=== PATIENT | male | born 1970 | race Caucasian/White ===

== ENCOUNTER 2017-08-18 14:57 | Inpatient (IN) | payer MEDICAID, OTHER ==
[~2017-08-18] VITALS: Ht 162.6 cm; Wt 102.2 kg
[2017-08-18] MEDS ORDERED: SOD CHLORIDE 0.9% 1,000 ML IV STA (15:54)
[2017-08-18] MEDS ORDERED: ONDANSETRON 4 MG INJ IV STA (15:54)
[2017-08-18] MEDS ORDERED: KETOROLAC 30 MG INJ IV STA (15:54)
[2017-08-18 16:25] LABS: BASOPHIL # 0.1 10^3/ul (0.0-0.1); BASOPHILS % 0.2 % (0.0-2.0); EOSINOPHILS % 0.1 % (0.0-7.0); HEMATOCRIT 43.7 % (42.0-52.0); HEMOGLOBIN 14.4 g/dl (14.0-18.0); LYMPHOCYTES # 1.2 10^3/ul (0.8-2.9); LYMPHOCYTES % 5.5 % (15.0-51.0); MEAN CORPUSCULAR HEMOGLOBIN 25.9 pg (29.0-33.0); MEAN CORPUSCULAR VOLUME 78.7 fl (82.0-101.0); MEAN PLATELET VOLUME 10.3 fl (7.4-10.4); MONOCYTE # 0.9 10^3/ul (0.3-0.9); MONOCYTES % 4.2 % (0.0-11.0); NEUTROPHIL # 19.2 10^3/ul (1.6-7.5); NEUTROPHILS % 89.5 % (39.0-77.0); PLATELET COUNT 321 10^3/UL (140-415); RED BLOOD COUNT 5.55 10^6/ul (4.70-6.10); RED CELL DISTRIBUTION WIDTH 13.5 % (11.5-14.5); WHITE BLOOD COUNT 21.4 10^3/ul (4.8-10.8)
[2017-08-18 16:38] LABS: ADD UMIC YES; UR ASCORBIC ACID NEGATIVE (NEGATIVE); UR BACTERIA FEW /HPF (NONE SEEN); UR BILIRUBIN (Dip) NEGATIVE (NEGATIVE); UR BLOOD (Dip) 3+ mg/dL (NEGATIVE); UR CLARITY CLEAR (CLEAR); UR COLOR YELLOW (YELLOW); UR GLUCOSE (Dip) NEGATIVE (NEGATIVE); UR KETONES (Dip) NEGATIVE (NEGATIVE); UR LEUKOCYTE ESTERASE (Dip) NEGATIVE Leu/ul (NEGATIVE); UR MUCUS FEW /HPF (NONE SEEN); UR NITRITE (Dip) NEGATIVE (NEGATIVE); UR RBC 23 /HPF (0-5); UR SPECIFIC GRAVITY (Dip) 1.023 (1.003-1.030); UR TOTAL PROTEIN (Dip) NEGATIVE (NEGATIVE); UR UROBILINOGEN (Dip) NEGATIVE (NEGATIVE)
[2017-08-18 16:43] LABS: ALBUMIN 4.3 g/dl (3.3-4.9); ALBUMIN/GLOBULIN RATIO 1.38; BILIRUBIN,INDIRECT 0.5 mg/dl (0-1.1); BILIRUBIN,TOTAL 0.5 mg/dl (0.2-1.3); CALCIUM 8.9 mg/dl (8.4-10.2); CREATININE 1.01 mg/dl (0.61-1.24); TOTAL PROTEIN 7.4 g/dl (6.1-8.1)
[2017-08-18] MEDS ORDERED: SODIUM CHLORIDE 0.9% 1L BAG IV* STA (17:00)
[2017-08-18] MEDS ORDERED: AMPICILLIN/SULB 3 GM/NS (PMX) 100 ML IVPB ONE (17:30)
--- NOTE | 2017-08-18 17:33 | RADRPT ---
PROCEDURE: CT Abdomen and Pelvis without contrast. CLINICAL INDICATION: Left lower quadrant pain. History of appendectomy at 15-years old. TECHNIQUE: CT scan of the abdomen and pelvis without contrast was performed without intravenous co ntrast. Coronal and sagittal reformatted images were obtained from the axial source images. Images were reviewed on a high-resolution PACS workstation. CTDI 20 mGy, DLP 1244 mGy-cm One or more of the following dose reduction techniques were used: Automated exposure control Adjustment of the mA and/or kV according to patient size. Use of iterative reconstruction technique. DICOM images are available. COMPARISON: None. FINDINGS: The lung bases are clear with minimal scarring within the left lower lobe. The heart size is normal . The aorta and its branches are normal in size and caliber. The kidneys are symmetric in size and density. There is slight medial rotation of the inferior poles of both kidneys, congenital. There is no perinephric fat stranding. There is no nephroureterolithia sis or hydronephrosis. The ureters are normal in course and caliber. Evaluation of solid organs is limited due to the lack of intravenous contrast. However, the liver, g allbladder, spleen, pancreas, and adrenal glands are unremarkable. The distal esophagus is unremarkable. Stomach is decompressed. The small bowel loops are normal in c aliber without evidence of small bowel obstruction. The appendix is not visualized in keeping with history of prior appendectomy. There are several diverticula in the lower descending and sigmoid col on with fat stranding surrounding the lower descending colon. The left colon is mostly decompressed. There is no pneumoperitoneum or an abscess. No significant free fluid is visualized. There is no mesenteric, retroperitoneal, or pelvic lymphadenopathy. The bladder is mildly distended, but grossly unremarkable. The prostate is mildly enlarged with a fe w calcifications. Seminal vesicles are unremarkable. There is no pelvic free fluid. Multilevel mild degenerative disc disease within the thoracolumbar spine are noted. There are no acu te fractures. There are also mild degenerative changes within both hips with osseous spurring and marisel int space narrowing. RPTAT: QQ IMPRESSION: 1. Diverticulitis with several diverticula within the lower descending and sigmoid colon with fat s tranding surrounding the lower descending colon. No intra-abdominal abscess or pneumoperitoneum. 2. Non-visualized appendix in keeping with prior appendectomy. Results were discussed with Dr. Macedo at 08/18/2017 5:29:48 PM. .Mabel Ellis MD, MD Date Time Electronically viewed and signed by .Mabel Ellis MD, MD on 08/18/2017 17:32 .T/
--- NOTE | 2017-08-18 18:25 | RADRPT ---
PROCEDURE: Portable chest x-ray. CLINICAL INDICATION: 47-year of age, male. Possible sepsis TECHNIQUE: Portable AP view of the chest. COMPARISON: None available. FINDINGS: Medical devices: None. Cardiomediastinal contours are normal. Lungs are clear. Negative for pleural effusion or pneumothorax. No acute bony abnormality. Additional comment: None. IMPRESSION: Negative for evidence of an acute chest process. RPTAT: HCTS Shelly Mckenzie Physician Date Time Electronically viewed and signed by Shelly Mckenzie Physician on 08/18/2017 18:24 CS/
[2017-08-18 18:35] LABS: INR 0.9; PARTIAL THROMBOPLASTIN TIME 28.1 Sec (25.0-35.0); PROTIME 12.2 Sec (11.9-14.9)
--- NOTE | 2017-08-18 18:48 | ERD ---
ER Documentation Chief Complaint Chief Complaint left lower abd pain x 2 days , denies n/v/d HPI Patient is a 47-year-old male with hypertension who presents with abdominal pain. He has left lower quadrant abdominal pain which started yesterday. It is sharp and constant. He had fevers as well. He tried "Panadol" for pain. He denies vomiting or diarrhea. He does not currently have a primary doctor. ROS All systems reviewed and are negative except as per history of present illness. Allergies Allergies: Coded Allergies: No Known Allergy (Unverified , 08/18/17) PMhx/Soc Medical and Surgical Hx: pt denies Medical Hx History of Surgery: Yes (appendectomy) Hx Alcohol Use: No Hx Substance Use: No Hx Tobacco Use: No Smoking Status: Never smoker FmHx Family History: No diabetes Physical Exam Vitals Vital Signs Date Time Temp Pulse Resp B/P Pulse Ox O2 Delivery O2 Flow Rate FiO2 08/18/17 15:00 100.1 110 18 149/92 98 Physical Exam Const: Moderate distress secondary to pain Head: Atraumatic Eyes: Normal Conjunctiva ENT: Normal External Ears, Nose and Mouth. Neck: Full range of motion..~ No meningismus. Resp: Clear to auscultation bilaterally Cardio: Regular rate and rhythm, no murmurs Abd: Soft, left lower quadrant tenderness to palpation without rebound or guarding Skin: No petechiae or rashes Back: No midline or flank tenderness Ext: No cyanosis, or edema Neur: Awake and alert Psych: Normal Mood and Affect Result Diagram: 08/18/17 1611 08/18/17 1611 Results 24 hrs Laboratory Tests Test 08/18/17 16:11 08/18/17 17:47 White Blood Count 21.410^3/ul Red Blood Count 5.5510^6/ul Hemoglobin 14.4g/dl Hematocrit 43.7% Mean Corpuscular Volume 78.7fl Mean Corpuscular Hemoglobin 25.9pg Mean Corpuscular Hemoglobin Concent 33.0g/dl Red Cell Distribution Width 13.5% Platelet Count 30084^3/UL Mean Platelet Volume 10.3fl Neutrophils % 89.5% Lymphocytes % 5.5% Monocytes % 4.2% Eosinophils % 0.1% Basophils % 0.2% Nucleated Red Blood Cells % 0.0/100WBC Neutrophils # 19.210^3/ul Lymphocytes # 1.210^3/ul Monocytes # 0.910^3/ul Eosinophils # 0.010^3/ul Basophils # 0.110^3/ul Nucleated Red Blood Cells # 0.010^3/ul Urine Color YELLOW Urine Clarity CLEAR Urine pH 5.0 Urine Specific [place] 1.023 Urine Ketones NEGATIVEmg/dL Urine Nitrite NEGATIVEmg/dL Urine Bilirubin NEGATIVEmg/dL Urine Urobilinogen NEGATIVEmg/dL Urine Leukocyte Esterase NEGATIVELeu/ul Urine Microscopic RBC 23/HPF Urine Microscopic WBC 2/HPF Urine Bacteria FEW/HPF Urine Mucus FEW/HPF Urine Hemoglobin 3+mg/dL Urine Glucose NEGATIVEmg/dL Urine Total Protein NEGATIVEmg/dl Sodium Level 140mmol/L Potassium Level 4.0mmol/L Chloride Level 103mmol/L Carbon Dioxide Level 27mmol/L Anion Gap 14 Blood Urea Nitrogen 13mg/dl Creatinine 1.01mg/dl Glucose Level 124mg/dl Calcium Level 8.9mg/dl Total Bilirubin 0.5mg/dl Direct Bilirubin 0.00mg/dl Indirect Bilirubin 0.5mg/dl Aspartate Amino Transf (AST/SGOT) 28IU/L Alanine Aminotransferase (ALT/SGPT) 48IU/L Alkaline Phosphatase 106IU/L Total Protein 7.4g/dl Albumin 4.3g/dl Globulin 3.10g/dl Albumin/Globulin Ratio 1.38 Lipase 97U/L Prothrombin Time 12.2Sec Prothrombin Time Ratio 1.0 INR International Normalized Ratio 0.90 Activated Partial Thromboplast Time 28.1Sec Lactic Acid Level 1.0mmol/L Troponin I < 0.012ng/ml Current Medications Medications (Trade) Dose Ordered Sig/Emma Route PRN Reason Start Time Stop Time Status Last Admin Dose Admin Sodium Chloride (NS) 1,000 ml @ 1,000 mls/hr Q1H STAT IV 08/18/17 15:54 08/18/17 16:53 DC 08/18/17 16:21 Ondansetron HCl (Zofran Inj) 4 mg ONCE STAT IV 08/18/17 15:54 08/18/17 15:57 DC 08/18/17 16:22 Ketorolac Tromethamine (Toradol) 30 mg ONCE STAT IV 08/18/17 15:54 08/18/17 15:57 DC 08/18/17 16:22 Sodium Chloride 2080 ml 2,080 ml BOLUS OVER 2 HOURS STAT IV* 08/18/17 17:00 08/18/17 17:02 DC 08/18/17 17:23 Ampicillin Sodium/ Sulbactam Sodium (Unasyn 3gm/NS (Pmx)) 100 ml @ 100 mls/hr ONCE ONCE IVPB 08/18/17 17:30 08/18/17 18:29 DC 08/18/17 17:52 Ondansetron HCl (Zofran Inj) 4 mg BRIDGE ORDER PRN IV NAUSEA AND/OR VOMITING 08/18/17 19:00 08/19/17 18:59 Acetaminophen (Tylenol Tab) 650 mg ER BRIDGE PRN PO MILD PAIN/FEVER 08/18/17 19:00 08/19/17 18:59 Procedures/MDM CT abdomen pelvis shows diverticulitis with stranding but no abscess or perforation per radiology. Patient is a 47-year-old male presents with acute diverticulitis. He has an elevated white count of 21. His lactic acid is normal. He was given 30 mg/kg fluid bolus as well as Unasyn IV. At this point however I doubt sepsis. The patient will be admitted to the care of Dr. Thomas from the panel team to a medical surgical bed. He will likely need continued IV antibiotics. I doubt appendicitis, cholecystitis, pancreatitis, or bowel obstruction. Departure Diagnosis: Primary Impression: Diverticulitis Additional Impression: Abdominal pain Abdominal location: left lower quadrant Qualified Code: R10.32 - Left lower quadrant pain Condition: QUEENIE Clarke MD Aug 18, 2017 18:48
[2017-08-18] MEDS ORDERED: ONDANSETRON 4 MG INJ IV PRN ×2 (19:00)
[2017-08-18] MEDS ORDERED: NACL 0.9% 3 ML SYG IV SCH (19:00)
[2017-08-18] MEDS ORDERED: KETOROLAC 15 MG INJ IV PRN (19:00)
--- NOTE | 2017-08-18 19:07 | HP ---
Date/Time of Note Date/Time of Note DATE: 08/18/17 TIME: 18:58 Assessment/Plan VTE Prophylaxis VTE Prophylaxis Intervention: SCD's Assessment/Plan Assessment/Plan 1. Acute diverticulitis - CT scan shows "Diverticulitis with several diverticula within the lower descending and sigmoid colon with fat stranding surrounding the lower descending colon. No intra-abdominal abscess or pneumoperitoneum" - Pain control, IVF and will keep on clears since does c/o hunger - IV antibiotics started as well and will monitor - Will need outpatient colonoscopy in 6 weeks after resolution of symptoms 2. Leukocytosis - most likely secondary to #1 - IV antibiotics and will continue to trend 3. HTN - not on any home medications - stable for now and will start if SBP maintains >170 4. GI ppx - PPI 5. DVT ppx - SCD 6. Diet - clear liquid 7. Code status - Full code 8. Disposition - Admit to med/surg HPI/ROS Admit Date/Time Admit Date/Time 08/18/17 Hx of Present Illness 47 yo M with PMH HTN not on any medications presented to ED complaining of LLQ pain for the past 2 days. Patient states he has been experiencing a constant strong pain, moderate in nature, worse when he walks, better with rest, not associated to foods. Associated with nausea, fevers, but denies any vomiting, change in stool, chest pain, shortness of breath, or dizziness. Patient has never experiencing this pain in the past and no one in his family has GI issues. ROS All 12 systems reviewed and pertinent positives as per HPI. All others negative. Constitutional: febrile, nausea, No disoriented, No fatigue Eyes: No discharge, No redness ENT: No congestion, No discharge Respiratory: No cough, No shortness of breath, No sputum, No wheezing Cardiovascular: No chest pain, No edema, No lightheadedness, No palpitations Gastrointestinal: nausea, pain, No constipation, No diarrhea, No vomiting Genitourinary: No discharge, No flank pain Musculoskeletal: no complaints Skin: No erythema, No pruritis, No rash Neurologic: no complaints Endocrine: no complaints Lymphatic: no complaints Psychological: nl mood/affect Immunologic: no complaints PMH/Family/Social Past Medical History Medical History: hypertension Past Surgical History Past Surgical Hx: appendectomy Family History Significant Family History: no pertinent family hx Social History Alcohol Use: none Smoking Status: Never smoker Drug Use: none Exam/Review of Systems Vital Signs Vitals Vital Signs Date Time Temp Pulse Resp B/P Pulse Ox O2 Delivery O2 Flow Rate FiO2 08/18/17 15:00 100.1 110 18 149/92 98 Exam Constitutional: alert, distress (mild from pain), oriented, well developed Psych: nl mood/affect Head: atraumatic, normocephalic Eyes: EOMI, PERRL ENMT: mucosa pink and moist Neck: non-tender, supple Respiratory: clear to auscultation, No crackles/rales, No diminished breath sounds, No wheezing Cardiovascular: No edema, No murmurs/extra sounds, No regular rate and rhythm, No systolic murmur Gastrointestinal: bowel sounds, distended, nl liver, spleen, soft, tender (LLQ) , No ascites, No rebound or guarding Genitourinary - Male: No CVA tenderness Musculoskeletal: nl extremities to inspection Extremities: normal pulses, No cyanosis, No edema Neurological: [employer] II-XII intact, nl mental status, nl speech, No focal weakness Skin: nl turgor Lymph: nl lymph nodes Labs Result Diagram: 08/18/17 1611 08/18/17 1611 Medications Medications No home medications to review Procedures Procedures PROCEDURE: CT Abdomen and Pelvis without contrast. CLINICAL INDICATION: Left lower quadrant pain. History of appendectomy at 15- years old. TECHNIQUE: CT scan of the abdomen and pelvis without contrast was performed without intravenous contrast. Coronal and sagittal reformatted images were obtained from the axial source images. Images were reviewed on a high- resolution PACS workstation. CTDI 20 mGy, DLP 1244 mGy-cm One or more of the following dose reduction techniques were used: Automated exposure control Adjustment of the mA and/or kV according to patient size. Use of iterative reconstruction technique. DICOM images are available. COMPARISON: None. FINDINGS: The lung bases are clear with minimal scarring within the left lower lobe. The heart size is normal. The aorta and its branches are normal in size and caliber. The kidneys are symmetric in size and density. There is slight medial rotation of the inferior poles of both kidneys, congenital. There is no perinephric fat stranding. There is no nephroureterolithiasis or hydronephrosis. The ureters are normal in course and caliber. Evaluation of solid organs is limited due to the lack of intravenous contrast. However, the liver, gallbladder, spleen, pancreas, and adrenal glands are unremarkable. The distal esophagus is unremarkable. Stomach is decompressed. The small bowel loops are normal in caliber without evidence of small bowel obstruction. The appendix is not visualized in keeping with history of prior appendectomy. There are several diverticula in the lower descending and sigmoid colon with fat stranding surrounding the lower descending colon. The left colon is mostly decompressed. There is no pneumoperitoneum or an abscess. No significant free fluid is visualized. There is no mesenteric, retroperitoneal, or pelvic lymphadenopathy. The bladder is mildly distended, but grossly unremarkable. The prostate is mildly enlarged with a few calcifications. Seminal vesicles are unremarkable. There is no pelvic free fluid. Multilevel mild degenerative disc disease within the thoracolumbar spine are noted. There are no acute fractures. There are also mild degenerative changes within both hips with osseous spurring and joint space narrowing. RPTAT: QQ IMPRESSION: 1. Diverticulitis with several diverticula within the lower descending and sigmoid colon with fat stranding surrounding the lower descending colon. No intra-abdominal abscess or pneumoperitoneum. 2. Non-visualized appendix in keeping with prior appendectomy. PROCEDURE: Portable chest x-ray. CLINICAL INDICATION: 47-year of age, male. Possible sepsis TECHNIQUE: Portable AP view of the chest. COMPARISON: None available. FINDINGS: Medical devices: None. Cardiomediastinal contours are normal. Lungs are clear. Negative for pleural effusion or pneumothorax. No acute bony abnormality. Additional comment: None. IMPRESSION: Negative for evidence of an acute chest process. VALORIE GONZALES MD Aug 18, 2017 19:07
[2017-08-18] MEDS: CIPROFLOXACIN 400MG/D5W 200 ML IVPB SCH (22:19)
[2017-08-18] MEDS: SOD CHLORIDE 0.9% 1,000 ML IV SCH (22:20)
[2017-08-18] MEDS: ACETAMINOPHEN 325 MG TAB PO PRN (23:00)
[2017-08-18] MEDS: morphine 2 MG INJ IV PRN (23:00)
[2017-08-18] MEDS: metroNIDAZOLE 500 MG/NS (PMX) 100 ML IVPB SCH (23:00)
[2017-08-18 23:53] VITALS: TEMP 100.6
[2017-08-19 00:19] VITALS: BP 118/82; RESP 20
[2017-08-19 00:45] VITALS: Ht 162.6 cm; Wt 102.2 kg
[2017-08-19 02:27] VITALS: BP 122/83; RESP 19
[2017-08-19] MEDS: morphine 2 MG INJ IV PRN ×2 (03:52→20:16)
[2017-08-19] MEDS: PANTOPRAZOLE (EC) 40 MG TAB PO SCH (05:33)
[2017-08-19] MEDS: metroNIDAZOLE 500 MG/NS (PMX) 100 ML IVPB SCH ×3 (05:33→21:46)
[2017-08-19 08:15] VITALS: BP 118/83; RESP 18
[2017-08-19] MEDS: CIPROFLOXACIN 400MG/D5W 200 ML IVPB SCH ×2 (08:26→20:16)
[2017-08-19] MEDS: SOD CHLORIDE 0.9% 1,000 ML IV SCH (08:26)
--- NOTE | 2017-08-19 08:42 | PN ---
Date/Time of Note Date/Time of Note DATE: 08/19/17 TIME: 08:40 Assessment/Plan VTE Prophylaxis VTE Prophylaxis Intervention: heparin Lines/Catheters IV [facility] Urinary Cath still in place: No Assessment/Plan Problems: (1) Diverticulitis Status: Acute Comment: He has improved significantly since admission but still is having fevers and symptoms. Because of this I wish to continue him in the hospital on IV antibiotic therapy and observation. If he continues to improve at this place and tentatively he can be switched to orals and discharge tomorrow (2) Essential hypertension Status: Chronic Comment: Noted in under observation. (3) Obesity (BMI 35.0-39.9 without comorbidity) Status: Chronic Comment: Noted. Counseled on eventual calorie restriction diet Subjective 24 Hr Interval Summary Free Text/Dictation Patient reports that he is still having left lower quadrant pain although it is better than it was yesterday. Constitutional: chills, febrile ENT: no complaints Respiratory: no complaints Cardiovascular: no complaints Gastrointestinal: nausea (Denies), pain (Left lower quadrant pain), vomiting ( Denies) Genitourinary: no complaints Musculoskeletal: no complaints Exam/Review of Systems Vital Signs Vitals Vital Signs Date Time Temp Pulse Resp B/P Pulse Ox O2 Delivery O2 Flow Rate FiO2 08/19/17 08:15 100.0 96 18 118/83 95 08/18/17 23:53 Room Air Intake and Output 08/18/17 08/18/17 08/19/17 15:00 23:00 07:00 Intake Total 1100 ml 820 ml Output Total 800 ml Balance 1100 ml 20 ml Exam Constitutional: alert, oriented Neck: non-tender, supple Respiratory: clear to auscultation, normal air movement Cardiovascular: nl pulses, regular rate and rhythm Gastrointestinal: nl liver, spleen, non-tender, soft Results Result Diagram: 08/18/17 1611 08/18/17 1611 Results 24 hrs Laboratory Tests Test 08/18/17 16:11 08/18/17 17:47 08/18/17 21:14 08/18/17 23:24 White Blood Count 21.4 H Red Blood Count 5.55 Hemoglobin 14.4 Hematocrit 43.7 Mean Corpuscular Volume 78.7 L Mean Corpuscular Hemoglobin 25.9 L Mean Corpuscular Hemoglobin Concent 33.0 Red Cell Distribution Width 13.5 Platelet Count 321 Mean Platelet Volume 10.3 Neutrophils % 89.5 H Lymphocytes % 5.5 L Monocytes % 4.2 Eosinophils % 0.1 Basophils % 0.2 Nucleated Red Blood Cells % 0.0 Neutrophils # 19.2 H Lymphocytes # 1.2 Monocytes # 0.9 Eosinophils # 0.0 Basophils # 0.1 Nucleated Red Blood Cells # 0.0 Urine Color YELLOW Urine Clarity CLEAR Urine pH 5.0 Urine Specific [place] 1.023 Urine Ketones NEGATIVE Urine Nitrite NEGATIVE Urine Bilirubin NEGATIVE Urine Urobilinogen NEGATIVE Urine Leukocyte Esterase NEGATIVE Urine Microscopic RBC 23 H Urine Microscopic WBC 2 Urine Bacteria FEW A Urine Mucus FEW A Urine Hemoglobin 3+ H Urine Glucose NEGATIVE Urine Total Protein NEGATIVE Sodium Level 140 Potassium Level 4.0 Chloride Level 103 Carbon Dioxide Level 27 Anion Gap 14 Blood Urea Nitrogen 13 Creatinine 1.01 Glucose Level 124 Calcium Level 8.9 Total Bilirubin 0.5 Direct Bilirubin 0.00 Indirect Bilirubin 0.5 Aspartate Amino Transf (AST/SGOT) 28 Alanine Aminotransferase (ALT/SGPT) 48 Alkaline Phosphatase 106 Total Protein 7.4 Albumin 4.3 Globulin 3.10 Albumin/Globulin Ratio 1.38 Lipase 97 Prothrombin Time 12.2 Prothrombin Time Ratio 1.0 INR International Normalized Ratio 0.90 Activated Partial Thromboplast Time 28.1 Lactic Acid Level 1.0 1.2 0.9 Troponin I < 0.012 Medications Medications Current Medications Sodium Chloride (NS) 1,000 ml @ 75 mls/hr [id number] IV Last administered on 08:26; Admin Dose 75 MLS/HR; Start 08/18/17 at 18:43; Stop 08/19/17 at 18:42 Ondansetron HCl (Zofran Inj) 4 mg Q6H PRN IV NAUSEA AND/OR VOMITING; Start at 19:00 Acetaminophen (Tylenol Tab) 650 mg Q6H PRN PO PAIN LEVEL 1-3 OR FEVER; Start 08/18/17 at 19:00 Morphine Sulfate (morphine) 2 mg Q4H PRN IV SEVERE PAIN LEVEL 7-10 Last administered on 08/19/17 03:52; Admin Dose 2 MG; Start 08/18/17 at 19:00 Pantoprazole 40 mg 40 mg DAILY@06 PO Last administered on 08/19/17 05:33; Admin Dose 40 MG; Start 08/19/17 at 06:00 Ciprofloxacin/ Dextrose 200 ml @ 200 mls/hr Q12 IVPB Last administered on 08:26; Admin Dose 200 MLS/HR; Start 08/18/17 at 21:00 Metronidazole (Flagyl 500 Mg (Pmx)) 100 ml @ 100 mls/hr Q8 IVPB Last administered on 08/19/17 05:33; Admin Dose 100 MLS/HR; Start 08/18/17 at 22: 00 Ketorolac Tromethamine (Toradol) 15 mg Q6H PRN IV PAIN Last administered on 05:40; Admin Dose 15 MG; Start 08/18/17 at 19:00; Stop 08/21/17 at 18: 59 CLIVE ARANGO MD Aug 19, 2017 08:42
[2017-08-19 14:32] VITALS: BP 147/94; RESP 18
[2017-08-19 14:42] LABS: ADD UMIC YES; UR ASCORBIC ACID NEGATIVE (NEGATIVE); UR BACTERIA FEW /HPF (NONE SEEN); UR BILIRUBIN (Dip) NEGATIVE (NEGATIVE); UR BLOOD (Dip) 3+ mg/dL (NEGATIVE); UR CLARITY CLEAR (CLEAR); UR COLOR YELLOW (YELLOW); UR GLUCOSE (Dip) NEGATIVE (NEGATIVE); UR KETONES (Dip) TRACE mg/dL (NEGATIVE); UR LEUKOCYTE ESTERASE (Dip) NEGATIVE Leu/ul (NEGATIVE); UR NITRITE (Dip) NEGATIVE (NEGATIVE); UR RBC 131 /HPF (0-5); UR SPECIFIC GRAVITY (Dip) 1.017 (1.003-1.030); UR TOTAL PROTEIN (Dip) NEGATIVE (NEGATIVE); UR UROBILINOGEN (Dip) 2+ mg/dL (NEGATIVE)
[2017-08-19] MEDS: ACETAMINOPHEN 325 MG TAB PO PRN ×2 (15:15→21:46)
[2017-08-19 20:01] VITALS: BP 149/94; RESP 18
[2017-08-19 21:40] VITALS: BP 132/78; PULSE 111; RESP 18
[2017-08-20 01:40] VITALS: BP 120/76; RESP 18
[2017-08-20] MEDS: metroNIDAZOLE 500 MG/NS (PMX) 100 ML IVPB SCH ×3 (05:05→21:15)
[2017-08-20] MEDS: PANTOPRAZOLE (EC) 40 MG TAB PO SCH (05:05)
[2017-08-20 05:34] LABS: BASOPHIL # 0.1 10^3/ul (0.0-0.1); BASOPHILS % 0.3 % (0.0-2.0); EOSINOPHILS % 0.2 % (0.0-7.0); HEMATOCRIT 39.8 % (42.0-52.0); HEMOGLOBIN 12.7 g/dl (14.0-18.0); LYMPHOCYTES # 1.3 10^3/ul (0.8-2.9); LYMPHOCYTES % 6.2 % (15.0-51.0); MEAN CORPUSCULAR HEMOGLOBIN 25.8 pg (29.0-33.0); MEAN CORPUSCULAR HGB CONC 31.9 g/dl (32.0-37.0); MEAN CORPUSCULAR VOLUME 80.7 fl (82.0-101.0); MEAN PLATELET VOLUME 10.7 fl (7.4-10.4); MONOCYTE # 0.9 10^3/ul (0.3-0.9); MONOCYTES % 4.3 % (0.0-11.0); NEUTROPHIL # 18.6 10^3/ul (1.6-7.5); NEUTROPHILS % 88.3 % (39.0-77.0); PLATELET COUNT 266 10^3/UL (140-415); RED BLOOD COUNT 4.93 10^6/ul (4.70-6.10); RED CELL DISTRIBUTION WIDTH 13.6 % (11.5-14.5)
[2017-08-20 06:02] LABS: ALBUMIN 3.3 g/dl (3.3-4.9); ALBUMIN/GLOBULIN RATIO 1.1; BILIRUBIN,INDIRECT 0.5 mg/dl (0-1.1); BILIRUBIN,TOTAL 0.5 mg/dl (0.2-1.3); CALCIUM 8.3 mg/dl (8.4-10.2); CREATININE 1.04 mg/dl (0.61-1.24); POTASSIUM 3.8 mmol/L (3.5-5.1); TOTAL PROTEIN 6.3 g/dl (6.1-8.1)
[2017-08-20 07:24] VITALS: BP 138/95; RESP 20
[2017-08-20] MEDS: ACETAMINOPHEN 325 MG TAB PO PRN ×3 (07:26→21:15)
[2017-08-20] MEDS: CIPROFLOXACIN 400MG/D5W 200 ML IVPB SCH ×2 (08:43→19:56)
--- NOTE | 2017-08-20 11:49 | PN ---
Date/Time of Note Date/Time of Note DATE: 08/20/17 TIME: 11:45 Assessment/Plan VTE Prophylaxis VTE Prophylaxis Intervention: ambulation Lines/Catheters IV [facility]ter Type (from [facility]): Peripheral IV Urinary Cath still in place: No Assessment/Plan Chief Complaint/Hosp Course 47 yo M with PMH HTN not on any medications presented to ED complaining of LLQ pain for the past 2 days who was noted with acute diverticulitis. 1. Diverticulitis. Status: Acute -Symptoms improved significantly. -Advance diet to full liquid. Continue IV Cipro and Flagyl. -Recommend eventual colonoscopy in 6 weeks as outpatient. 2. Essential hypertension. Not on medication management. Status: Chronic -Currently blood pressure under control and will continue to monitor. 3.Obesity Status: Chronic -Counseled on eventual calorie restriction diet -Add lipid panel and A1c to a.m. labs. Plan: If patient tolerates full liquid diet and labs and vital signs remained stable, likely discharge planning in a.m. Patient was seen in collaboration with Problems: Subjective 24 Hr Interval Summary Free Text/Dictation Overall, patient with improvement in abdominal pain. He is also feeling hungry. Remains afebrile. Exam/Review of Systems Vital Signs Vitals Vital Signs Date Time Temp Pulse Resp B/P Pulse Ox O2 Delivery O2 Flow Rate FiO2 08/20/17 07:24 99.7 102 20 138/95 96 08/19/17 21:40 Room Air Intake and Output 08/19/17 08/19/17 08/20/17 15:00 23:00 07:00 Intake Total 200 ml 1505 ml 1450 ml Balance 200 ml 1505 ml 1450 ml Exam General: Obese male, not in any acute distress . HEENT: Normocephalic, Atraumatic, No laceration or hematoma; Eyes: PEERL, Conjunctiva clear, Anicteric sclera Neck: Supple without any lymphadenopathy, nontender, no JVD, no carotid bruits, trachea midline, no thyromegaly Cardiac: S1, S2 auscultated, regular rhythm and rate, no mumurs or gallop Pulmonary: Normal respiratory effort. Chest clear to auscultation bilaterally, no adventitious breath sounds GI: Slight tenderness to left upper and lower quadrant. Otherwise, abdomen normal to inspection. Soft, non- distended, no masses, no rebound tenderness or guarding. Bowel sounds active on all four quadrants Genitourinary: Deferred Extremities: No cyanosis, clubbing, or edema. Pulses [2+] bilaterally. Full ROM on all four extremities. No focal weakness appreciated. Neurologic: Alert to person, place, time, and situation. Affect appropriate, intact sensation. Skin: Clean,dry, and intact. No ecchymosis, no rashes, or lesions Results Result Diagram: 08/20/17 0422 08/20/17 0422 Results 24 hrs Laboratory Tests Test 08/19/17 13:15 08/20/17 04:22 Urine Color YELLOW Urine Clarity CLEAR Urine pH 6.0 Urine Specific [place] 1.017 Urine Ketones TRACE A Urine Nitrite NEGATIVE Urine Bilirubin NEGATIVE Urine Urobilinogen 2+ H Urine Leukocyte Esterase NEGATIVE Urine Microscopic RBC 131 H Urine Microscopic WBC 3 Urine Bacteria FEW A Urine Hemoglobin 3+ H Urine Glucose NEGATIVE Urine Total Protein NEGATIVE White Blood Count 21.0 H Red Blood Count 4.93 Hemoglobin 12.7 L Hematocrit 39.8 L Mean Corpuscular Volume 80.7 L Mean Corpuscular Hemoglobin 25.8 L Mean Corpuscular Hemoglobin Concent 31.9 L Red Cell Distribution Width 13.6 Platelet Count 266 Mean Platelet Volume 10.7 H Neutrophils % 88.3 H Lymphocytes % 6.2 L Monocytes % 4.3 Eosinophils % 0.2 Basophils % 0.3 Nucleated Red Blood Cells % 0.0 Neutrophils # 18.6 H Lymphocytes # 1.3 Monocytes # 0.9 Eosinophils # 0.0 Basophils # 0.1 Nucleated Red Blood Cells # 0.0 Sodium Level 140 Potassium Level 3.8 Chloride Level 104 Carbon Dioxide Level 24 Anion Gap 16 Blood Urea Nitrogen 10 Creatinine 1.04 Glucose Level 127 Calcium Level 8.3 L Total Bilirubin 0.5 Direct Bilirubin 0.00 Indirect Bilirubin 0.5 Aspartate Amino Transf (AST/SGOT) 18 Alanine Aminotransferase (ALT/SGPT) 42 Alkaline Phosphatase 87 Total Protein 6.3 # Albumin 3.3 # Globulin 3.00 Albumin/Globulin Ratio 1.10 Medications Medications Current Medications Ondansetron HCl (Zofran Inj) 4 mg Q6H PRN IV NAUSEA AND/OR VOMITING Last administered on 08/19/17t 20:16; Admin Dose 4 MG; Start 08/18/17 at 19:00 Acetaminophen (Tylenol Tab) 650 mg Q6H PRN PO PAIN LEVEL 1-3 OR FEVER Last administered on 08/20/17 07:26; Admin Dose 650 MG; Start 08/18/17 at 19:00 Morphine Sulfate (morphine) 2 mg Q4H PRN IV SEVERE PAIN LEVEL 7-10 Last administered on 08/19/17 20:16; Admin Dose 2 MG; Start 08/18/17 at 19:00 Pantoprazole 40 mg 40 mg DAILY@06 PO Last administered on 08/20/17 05:05; Admin Dose 40 MG; Start 08/19/17 at 06:00 Ciprofloxacin/ Dextrose 200 ml @ 200 mls/hr Q12 IVPB Last administered on 08:43; Admin Dose 200 MLS/HR; Start 08/18/17 at 21:00 Metronidazole (Flagyl 500 Mg (Pmx)) 100 ml @ 100 mls/hr Q8 IVPB Last administered on 08/20/17 05:05; Admin Dose 100 MLS/HR; Start 08/18/17 at 22: 00 Ketorolac Tromethamine (Toradol) 15 mg Q6H PRN IV PAIN Last administered on 05:40; Admin Dose 15 MG; Start 08/18/17 at 19:00; Stop 08/21/17 at 18: 59 CHERY GONZALES NP Aug 20, 2017 11:49
[2017-08-20 13:22] LABS: CHOL/HDL RATIO 3.7 RATIO
[2017-08-20 14:32] VITALS: BP 139/88; RESP 20
[2017-08-20 20:03] VITALS: BP 138/94; RESP 18
[2017-08-20 21:20] VITALS: BP 134/91; PULSE 84; RESP 18
[2017-08-21] MEDS: metroNIDAZOLE 500 MG/NS (PMX) 100 ML IVPB SCH ×2 (05:19→14:17)
[2017-08-21] MEDS: PANTOPRAZOLE (EC) 40 MG TAB PO SCH (05:20)
[2017-08-21] MEDS: ACETAMINOPHEN 325 MG TAB PO PRN (05:25)
[2017-08-21 06:19] LABS: BASOPHILS % 0.3 % (0.0-2.0); EOSINOPHILS # 0.1 10^3/ul (0.0-0.5); EOSINOPHILS % 0.9 % (0.0-7.0); HEMOGLOBIN 13.2 g/dl (14.0-18.0); LYMPHOCYTES # 1.2 10^3/ul (0.8-2.9); LYMPHOCYTES % 7.8 % (15.0-51.0); MEAN CORPUSCULAR HEMOGLOBIN 25.7 pg (29.0-33.0); MEAN CORPUSCULAR HGB CONC 32.2 g/dl (32.0-37.0); MEAN CORPUSCULAR VOLUME 79.9 fl (82.0-101.0); MEAN PLATELET VOLUME 10.7 fl (7.4-10.4); MONOCYTES % 6.3 % (0.0-11.0); NEUTROPHIL # 13.2 10^3/ul (1.6-7.5); NEUTROPHILS % 84.3 % (39.0-77.0); PLATELET COUNT 313 10^3/UL (140-415); RED BLOOD COUNT 5.13 10^6/ul (4.70-6.10); RED CELL DISTRIBUTION WIDTH 13.3 % (11.5-14.5); WHITE BLOOD COUNT 15.6 10^3/ul (4.8-10.8)
[2017-08-21 08:27] VITALS: BP 125/84; RESP 16
[2017-08-21] MEDS: CIPROFLOXACIN 400MG/D5W 200 ML IVPB SCH (08:39)
--- NOTE | 2017-08-21 10:29 | PDOCDIS ---
Discharge Instructions CONDITION Patient Condition: Stable HOME CARE INSTRUCTIONS: Your diet recommendation is: Low calorie diet FOLLOW UP/APPOINTMENTS Follow-up Plan 1.Follow up with primary care physician in 1 week If you don't have one please let someone know, we can give you resources that may help you pick one. You may also call your insurance company to assign one to you. Review your medication list with your nurse before leaving and if you need new prescriptions please let your nurse know. I may have made changes to your home medications or given you new prescriptions, please let your primary doctor know as well. Stay compliant with your medications and report any side effects to your PCP or pharmacist. Return to the ER if you have any concerns and cannot reach your doctors or call your insurance company, they usually have a nurse that can help you. 2. Call 911 or go to the nearest emergency room if experiencing loss of consciousness, dizziness, chest pain, shortness of breath, vomiting/abdominal pain, speech difficulties, motor weakness or any unusual symptoms. CHERY GONZALES NP Aug 21, 2017 10:29
[2017-08-21] MEDS ORDERED: CIPR500T4 PO (10:30)
[2017-08-21] MEDS ORDERED: METR500T14 PO (10:30)
--- NOTE | 2017-08-21 10:39 | DS ---
Date/Time of Note Date/Time of Note DATE: 08/21/17 TIME: 10:38 Discharge Summary Admission/Discharge Info Admit Date/Time Aug 18, 2017 at 18:42 Discharge Date/Time Discharge Diagnosis 1. Acute diverticulitis. Symptoms resolved. 2. Essential hypertension. Stable. Not on medication management. 3. Obesity Patient Condition: Stable Procedures 08/18/2017. CT abdomen and pelvis. IMPRESSION: 1. Diverticulitis with several diverticula within the lower descending and sigmoid colon with fat stranding surrounding the lower descending colon. No intra-abdominal abscess or pneumoperitoneum. 2. Non-visualized appendix in keeping with prior appendectomy. Hospital Course This is a 47-year-old male with a past medical history hypertension not on any medications but under good control, presented to the emergency room with left lower quadrant abdominal pain for 2 day duration and was noted with acute diverticulitis without perforation. Patient was treated with strict bowel rest, IV fluids, IV Cipro and Flagyl. Patient's symptoms improved significantly. He was then advanced to a diet which he was able to tolerate. There was no further abdominal pain, nausea or vomiting. Patient blood pressure remained stable without any medication. He was also recommended on eventual calorie restriction diet. A lipid panel and A1c was within acceptable range. At this time, patient is feeling back to baseline. His blood cultures are negative. Patient is medically stable for outpatient follow-up. He was also recommended to continue 5 more days on Cipro and Flagyl for a complete course. Patient and family verbalized discharge instructions. Approximately 60 minutes was spent in coordinating the discharge on this patient. Patient is seen in collaboration with [facility] Active Scripts Metronidazole* (Metronidazole*) 500 Mg Tablet, 500 MG PO Q8 for 5 Days, #15 TAB Prov:CHERY GONZALES V. [employer] MACHINE OPERATOR 08/21/17 Ciprofloxacin Hcl* (Ciprofloxacin Hcl*) 500 Mg Tablet, 500 MG PO BID for 5 Days , #10 TAB Prov:CHERY GONZALES [employer] MACHINE OPERATOR 08/21/17 Follow-up Plan 1.Follow up with primary care physician in 1 week If you don't have one please let someone know, we can give you resources that may help you pick one. You may also call your insurance company to assign one to you. Review your medication list with your nurse before leaving and if you need new prescriptions please let your nurse know. I may have made changes to your home medications or given you new prescriptions, please let your primary doctor know as well. Stay compliant with your medications and report any side effects to your PCP or pharmacist. Return to the ER if you have any concerns and cannot reach your doctors or call your insurance company, they usually have a nurse that can help you. 2. Call 911 or go to the nearest emergency room if experiencing loss of consciousness, dizziness, chest pain, shortness of breath, vomiting/abdominal pain, speech difficulties, motor weakness or any unusual symptoms. Primary Care Provider Care Physician No Primary Pending Labs Laboratory Tests Test 08/21/17 04:29 White Blood Count 15.610^3/ul (4.8-10.8) Red Blood Count 5.1310^6/ul (4.70-6.10) Hemoglobin 13.2g/dl (14.0-18.0) Hematocrit 41.0% (42.0-52.0) Mean Corpuscular Volume 79.9fl (82.0-101.0) Mean Corpuscular Hemoglobin 25.7pg (29.0-33.0) Mean Corpuscular Hemoglobin Concent 32.2g/dl (32.0-37.0) Red Cell Distribution Width 13.3% (11.5-14.5) Platelet Count 07918^3/UL (140-415) Mean Platelet Volume 10.7fl (7.4-10.4) Neutrophils % 84.3% (39.0-77.0) Lymphocytes % 7.8% (15.0-51.0) Monocytes % 6.3% (0.0-11.0) Eosinophils % 0.9% (0.0-7.0) Basophils % 0.3% (0.0-2.0) Nucleated Red Blood Cells % 0.0/100WBC (0.0-0.0) Neutrophils # 13.210^3/ul (1.6-7.5) Lymphocytes # 1.210^3/ul (0.8-2.9) Monocytes # 1.010^3/ul (0.3-0.9) Eosinophils # 0.110^3/ul (0.0-0.5) Basophils # 0.010^3/ul (0.0-0.1) Nucleated Red Blood Cells # 0.010^3/ul (0.0-0.0) CHERY GONZALES [employer] MACHINE OPERATOR Aug 21, 2017 10:39
== END 2017-08-21 16:30 | disposition home or self-care (01) | DRG 392 ==
LOC: FTE 14:57 → MS1 18:42
PROVIDERS: ADMIT Internal Medicine; ATTEND Internal Medicine
DX: K57.32 Diverticulitis of large intestine without perforation or abscess without bleeding (principal); I10 Essential (primary) hypertension; D72.829 Elevated white blood cell count, unspecified; E66.9 Obesity, unspecified; Z68.35 Body mass index [BMI] 35.0-35.9, adult
CPT/HCPCS: 36415; 71010; 74176; 80053; 80061; 81001; 83036; 83605; 83690; 84484; 85025; 85610; 85730; 87040; 87086; 96361; 96365; 96375; J0295; J0744; J1885; J2270; J2405; J7030